=== PATIENT | female | born 1975 | race Caucasian/White ===

== ENCOUNTER → 2021-05-08 10:24 | Outpatient (CLI) | payer OTHER, MEDICARE, SELFPAY ==
--- NOTE | 2021-05-08 10:29 | XR_ITS ---
PROCEDURE: XR CHEST 2V CLINICAL HISTORY: R Post rib pain COMPARISON: No exams were available for comparison FINDINGS: The cardiomediastinal silhouette and pulmonary vascularity are within normal limits. There is a well-circumscribed round nodule in the left lung base measuring 14 mm consistent with a granuloma. The remaining lungs are clear. Minimal degenerative change in the upper thoracic spine with mild kyphosis. IMPRESSION: No acute findings. Dictated by: Madan Bhardwaj MD 05/08/2021 11:56 Madan Bhardwaj MD in [place] 05/08/2021 11:56
== END ==
PROVIDERS: PCP Family Medicine; Visit Provider Nurse Practitioner Family
DX: S22.41XD Multiple fractures of ribs, right side, subsequent encounter for fracture with routine healing (principal); R07.81 Pleurodynia
CPT/HCPCS: 71046

== ENCOUNTER → 2021-06-19 11:12 | Outpatient (CLI) | payer OTHER, MEDICARE, SELFPAY ==
--- NOTE | 2021-06-19 | CA_ITS ---
APPROVED REPORT Exam: Pharmacologic Technologist: lola mar, Ht: 5 ft 7 in Wt: 175 lbs BSA: 1.91 m2 HR: 69 bpm BP: 142/80 mmHg Indications: CP, A-FIB Medical History Medications: Asa,,,,, Diazepam,,,,, MeLOXICAM,,,,, Ventolin,,,,, PraZOSIN,,,,, Venlafaxine,,,,, Aripiprazole,,,,, Allergies: NKA Cardiac Risk Factors: Smoking Stress Test Details Test: LEXISCAN HR Resting HR: 67 bpm Max Heart Rate (APMHR): 172.465310 bpm Max HR Achieved: 114 bpm Target HR (85% APMHR): 146.306585 bpm % of APMHR: 66.28 Recovery HR: 11 bpm BP Resting BP: 142/80 mmHg Max BP: 186/95 mmHg Recovery BP: 186.0/95.0 mmHg ECG Resting ECG: NSR, normal Clinical Exercise duration: 04:04 min Highest Stage Achieved: Stress ECG Conclusion Symptoms: SOA, malaise, lightheaded, nausea, vomiting, and mild chest pressure. No arhhythmia or ectopy. No significant ST changes. Unremarkable Lexiscan stress. Images reported separately. Test Summary REST 02:58 . . 67 . 142/ 80 . . Stage 1 01:00 . . 92 . . . . Stage 2 01:00 . . 105 . . . . Stage 3 01:00 . . 96 . 174/ 93 . . Stage 4 01:00 . . 93 . 158/ 80 . . Stage 4 01:04 . . 94 . 158/ 80 . Stop exercise at 04:04 RECOVERY 01:00 . . 98 . . . . RECOVERY 02:00 . . 102 . . . . RECOVERY 03:00 . . 90 . 186/ 95 . . RECOVERY 04:00 . . 78 . 139/ 86 . . RECOVERY 05:00 . . 85 . 139/ 86 . . RECOVERY 06:00 . . 78 . 160/ 87 . . RECOVERY 07:00 . . 79 . 160/ 87 . . RECOVERY 07:18 . . 81 . 160/ 87 . . Electronically signed by : Ulices Ruiz MD 06/20/2021 17:12:38
--- NOTE | 2021-06-19 11:14 | US_ITS ---
APPROVED REPORT Exam Type: Lower Extremity Segmental Pressures Lurer: Dannielle Ricks RVT Indications Claudication: Bilaterally Rest Pain: Bilaterally Current Smoker CLAUDICATION Risk Factors Current Smoker Pressures/Indices Right Indices Left Indices Brachial 122.00 mmHg Brachial 124.00 mmHg Low Thigh 92.00 mmHg 0.74 Low Thigh 124.00 mmHg 1.00 Calf 95.00 mmHg 0.77 Calf 130.00 mmHg 1.05 Ankle(PT) 91.00 mmHg 0.73 Ankle(PT) 117.00 mmHg 0.94 Ankle(DP) 89.00 mmHg 0.72 Ankle(DP) 132.00 mmHg 1.06 Digit 61.00 mmHg 0.49 Digit 71.00 mmHg 0.57 Findings RT SAEED:0.73 LT SAEED:1.06 RT TBI:0.49 LT TBI:0.57 DAMPANED WAVEFORMS ON THE RIGHT NORMAL PULSES BILATERAL Conclusion RT SAEED:0.73 LT SAEED:1.06 RT TBI:0.49 LT TBI:0.57 DAMPANED WAVEFORMS ON THE RIGHT NORMAL PULSES BILATERAL Mild rt arterial disease Electronically signed by : Madan Bhardwaj MD 06/19/2021 16:31:22
--- NOTE | 2021-06-19 11:37 | NM_ITS ---
APPROVED REPORT Exam: Nuclear Stress Test Indication: TOB USE, FM HX, C.P., SOB, FATIGUE Patient Location: Outpatient Stress Tech: [place] Tech:Zoie Brewer JH RT (R)(N)(M) Ht: 5 ft 7 in Wt: 175 lbs Bra Size: B HR: 69 bpm BP: 142/80 mmHg BSA: 1.91 m2 BMI: 27.4 History: TOB USE, FM HX, C.P., SOB, FATIGUE Procedure: Patient received a 0.4 mg of intravenous Lexiscan, resting heart rate 69 bpm, resting blood pressure 142/80 mmHg, with Lexiscan maximum heart rate achived was 105 bpm which is Less than 85 % of the maximum predicted heart rate and blood pressure was 174/93 mmHg. With Lexiscan, patient denied any complaint of chest pain. C/P SOA, MALAISE Electrocardiogram Resting electrocardiogram shows sinus rhythm, with Lexiscan there is less than 1.[address] segment depression noted from the baseline EKG. The EKG portion of the Lexiscan is nondiagnostic. Cardiac Stress and Resting SPECT Images: Cardiac Stress and Resting SPECT images were obtained using technetium 99m Myoview 32.8 mCi stress and 10.54 mCi at rest. Gated SPECT for analysis of segmental wall motion and calculation of the ejection fraction also done, prone images were also obtained. Cardiac stress and resting SPECT images show uniform myocardial activity without segmental perfusion abnormality, computer derived ejection fraction is 44%, however visually estimated ejection fraction of 50% with no regional wall motion abnormality, right ventricle is normal size and contractility. Conclusion: 1. The EKG portion of the Lexiscan is nondiagnostic. 2. No scintigraphic evidence of reversible ischemia seen, computer derived ejection fraction is 44% however visually estimated ejection fraction 50% with no regional wall motion abnormality, right ventricle is normal size and contractility. 3. Likely normal Lexiscan Myoview study. Electronically signed by : Ulices Ruiz MD 06/20/2021 17:22:11
== END ==
PROVIDERS: PCP Family Medicine; Visit Provider Family Medicine
DX: R07.9 Chest pain, unspecified (principal); I73.9 Peripheral vascular disease, unspecified
CPT/HCPCS: 78452; 93017; 93923; A9502; J0280; J2785

== ENCOUNTER → 2021-06-29 11:12 | Outpatient (CLI) | payer OTHER, MEDICARE, SELFPAY ==
--- NOTE | 2021-06-29 11:32 | XR_ITS ---
PROCEDURE: XR HIP RT 2-3V W/PELVIS CLINICAL INDICATION: R Hip Pain COMPARISON: No exams were available for comparison FINDINGS: No fracture or dislocation. No lytic or blastic change. There are mild osteoarthritic changes of the hips with slight decrease in the joint space medially. Small osteophytes are present along the inferior portion of the acetabuli. There is mild hyperostosis along the greater trochanter on the right posteriorly. IMPRESSION: Mild osteoarthritic changes of the hips Dictated by: Madan Bhardwaj MD 06/29/2021 12:07 Madan Bhardwaj MD in [place] 06/29/2021 12:07
== END ==
PROVIDERS: PCP Family Medicine; Visit Provider Nurse Practitioner Family
DX: M25.551 Pain in right hip (principal)
CPT/HCPCS: 73502

== ENCOUNTER → 2021-09-18 14:26 | Outpatient (CLI) | payer OTHER, MEDICARE, SELFPAY ==
--- NOTE | 2021-09-18 14:31 | XR_ITS ---
PROCEDURE: XR KNEE LT 4V CLINICAL INDICATION: LT knee pain COMPARISON: No exams were available for comparison FINDINGS: No fracture or dislocation. No lytic or blastic change. There is normal mineralization. The joint spaces are well-preserved. No significant degenerative/arthritic changes. No erosive changes evident. There is a faint and questionable density seen just above the superior border of the patella which could be a small effusion within the suprapatellar bursa. Other findings:None. IMPRESSION: Grossly normal appearing left knee though I question the possibility of a small suprapatellar bursal effusion. Dictated by: Dr. Cesar Villafana MD 09/18/2021 14:51 Dr. Cesar Villafana MD in [place] 09/18/2021 14:51
== END ==
PROVIDERS: PCP Family Medicine; Visit Provider Orthopaedic Surgery
DX: M25.562 Pain in left knee (principal)
CPT/HCPCS: 73564

== ENCOUNTER → 2021-09-29 13:33 | Outpatient (CLI) | payer OTHER, MEDICARE, SELFPAY ==
--- NOTE | 2021-09-29 13:33 | MR_ITS ---
PROCEDURE: MR KNEE LT WO CON CLINICAL INDICATION: LT knee pain COMPARISON: CR XR KNEE LT 4V from 09/18/2021 TECHNIQUE: Routine multiplanar multi echo sequences are performed without gadolinium enhancement. FINDINGS: PCL appears intact. There is suspected tear of the mid aspect of the ACL. The inferior portion of the ACL fibers have a more horizontal course than expected. The lateral collateral ligaments have an unremarkable appearance. There is a complete tear of the MCL at the level of the knee joint with retracted distal fibers curling up deep to the MCL. No meniscal tear evident. There is a medium size knee joint effusion. Edema is present within the soft tissues around the knee. A bone bruise is present involving the proximal tibia laterally and posteriorly. The patellar tendon and quadriceps tendon appear intact IMPRESSION: 1. Tear of the anterior cruciate ligament and medial collateral ligament. 2. Bone bruise of the proximal tibia 3. Medium size knee joint effusion with edema within the soft tissues about the knee. Dictated by: Madan Bhardwaj MD 09/30/2021 16:01 Madan Bhardwaj MD in [place] 09/30/2021 16:01
== END ==
PROVIDERS: PCP Family Medicine; Visit Provider Orthopaedic Surgery
DX: M25.462 Effusion, left knee (principal)
CPT/HCPCS: 73721

== ENCOUNTER 2021-10-09 14:43 | Outpatient (RCR) | payer OTHER, MEDICARE, SELFPAY | END 2021-10-09 15:20 | disposition home or self-care (01) | LOC: PT 14:43 | PROVIDERS: Visit Provider Orthopaedic Surgery | DX: M25.462 Effusion, left knee (principal) | CPT/HCPCS: 97760 ==

== ENCOUNTER 2021-10-14 14:21 | Outpatient (RCR) | payer OTHER, MEDICARE, SELFPAY ==
--- NOTE | 2021-10-14 15:24 | HMH.OTOPEV ---
PHYSICIAN CERTIFICATION: I certify the specified therapy services for Romina Temple are required, authorized, and reviewed every 30 days.
== END 2021-10-14 14:25 | disposition home or self-care (01) ==
LOC: PT 14:21
PROVIDERS: PCP Family Medicine; Visit Provider Orthopaedic Surgery
DX: S83.512D Sprain of anterior cruciate ligament of left knee, subsequent encounter (principal)
CPT/HCPCS: 97163

== ENCOUNTER 2022-09-16 08:23 | Day surgery (SDC) | payer MEDICARE, SELFPAY ==
[2022-09-16] VITALS (11 sets, daily range): BP systolic 133–163; BP diastolic 73–99; PULSE 54–90; RESP 18–20; TEMP 36.6; O2SAT 95–99; BMI 27.1
--- NOTE | 2022-09-16 07:12 | IR_ITS ---
APPROVED REPORT Patient Location: Outpatient Registration Representative: JH Lopez RT (R) PROCEDURES Right retrograde femoral angiogram Catheter placement in the abdominal aorta Abdominal aortography Repositioning of the catheter in the abdominal aorta Bilateral iliofemoral runoff Angioplasty to the right common iliac artery INDICATION David claudication class V-, Occluded right common iliac artery, Abnormal SAEED 0.7 right leg Informed consent was obtained prior to the procedure. COMPLICATIONS None Estimated Blood Loss: Less than 10 mls TECHNIQUE 1% lidocaine used anesthetize the right groin the right femoral artery was accessed via the center technique and a 6 Swedish sheath was placed in the right femoral artery. Retrograde angiography demonstrated severe stenosis with near occlusion of the right common iliac artery. Therapeutic heparin was administered and an advantage wire was used to traverse the severe to critical stenosis. Following this a pigtail catheter was advanced and abdominal aortography was performed with repositioning followed by bilateral iliofemoral runoff. Following this a 5 Swedish sheath was exchanged for a 6 Swedish sheath and a 7 mm x 80 mm balloon was deployed in the distal abdominal aorta into the right common iliac artery at 15 nicole reducing the critical stenosis to less than 10%. A small dissection was identified which was nonflow limiting. Following this abdominal aortography with runoff was performed. After achieving excellent angiographic results the apparatus was removed the groin was reprepped gloves were changed sheath was removed and hemostasis was achieved using Perclose device patient was transferred to the postop putting in stable addition ANGIOGRAPHIC RESULTS Distal abdominal aorta has an infrarenal abdominal aneurysm Right common iliac artery was initially subtotally occluded following angioplasty there was a small nonflow limiting dissection with excellent inline flow into a much larger internal and external iliac artery Right external iliac artery was initially small which increased in size following revascularization Right common femoral artery has mild atheromatous plaque Right profunda femoris artery and right superficial femoral artery widely patent Right popliteal artery is widely patent There is three-vessel runoff below the knee on the right side Left common internal and external iliac arteries are widely patent as is the left common femoral artery Left superficial femoral artery and left profunda femoris artery are widely patent into a patent left popliteal artery There is three-vessel runoff below the knee on the left side IMPRESSION Infrarenal abdominal aortic aneurysm Subtotal occlusion of the right common iliac artery with successful angioplasty reducing lesion to 10% with a small nonflow limiting dissection Three-vessel runoff below the knee on the right side as described above PLAN 1. Aspirin and Plavix 2. LDL less than 55 to be achieved with high intensity statin 3. Avoidance of tobacco products 4. Risk factor modification 5. Evaluation of ischemic heart disease given patient's severe to critical peripheral artery disease Electronically signed by : Sebas Sandhu MD 09/16/2022 10:50:50
[2022-09-16 09:35] LABS: Basophils # 0.1 K/mm3 (0-0.2); Basophils % 0.8 % (0.1-2.0); Eosinophils # 0.2 K/mm3 (0.0-0.4); Eosinophils % 2.1 % (0.1-12.0); Hematocrit 47.5 % (37.0-47.0); Hemoglobin 14.8 g/dL (12.2-16.2); Lymphocytes # 3.1 K/mm3 (0.7-4.5); Lymphocytes % 38.4 % (10-50); Mean Corpuscular HGB Conc 31.3 g/dL (31.8-35.4); Mean Corpuscular Hemoglobin 33.3 pg (27.0-31.2); Mean Corpuscular Volume 106.6 fl (81-99); Mean Platelet Volume 8.5 fl (7.4-10.4); Monocytes # 0.3 K/mm3 (0.1-1.0); Monocytes % 3.7 % (1.7-9.3); Neutrophils # 4.4 K/mm3 (1.8-7.8); Neutrophils % 54.9 % (37.0-80.0); Platelet Count 249 K/mm3 (142-424); Red Blood Count 4.45 M/mm3 (4.20-5.40); Red Cell Distribution Width 12.8 % (11.5-17.5); White Blood Count 7.9 K/mm3 (4.8-10.8)
[2022-09-16 09:43] LABS: Chloride 106 mmol/L (98-107); Sodium 141 mmol/L (136-145)
[2022-09-16 09:46] LABS: Blood Urea Nitrogen 6 mg/dl (7-17); Calcium 9.8 mg/dl (8.4-10.2); Carbon Dioxide 27 mmol/L (22.0-30.0); Creatinine Clearance Estimated 141 mL/min (50-200); Estimated Glomerular Filt Rate 106 ml/min (>60); GFR (African American) 129 ML/MIN (>60); Glucose 98 mg/dl (74-100)
--- NOTE | 2022-09-16 12:14 | SUR.PHASEII ---
pt sitting up in bed eating lunch.
[2022-09-16 13:10] LABS: CATHL Activated Clotting Time 309 SEC (74-125)
== END 2022-09-16 13:34 | disposition home or self-care (01) ==
PROVIDERS: PCP Family Medicine; Visit Provider Internal Medicine
DX: I70.213 Atherosclerosis of native arteries of extremities with intermittent claudication, bilateral legs; F17.210 Nicotine dependence, cigarettes, uncomplicated; Z79.899 Other long term (current) drug therapy; I74.5 Embolism and thrombosis of iliac artery; I77.1 Stricture of artery
CPT/HCPCS: 36415; 37220; 75625; 80048; 85025; 85347; 99152; 99153; C1725; C1760; C1769; C1894; J1644; Q9966

== ENCOUNTER → 2022-09-24 12:54 | Outpatient (CLI) | payer MEDICARE, SELFPAY ==
--- NOTE | 2022-09-24 12:54 | CT_ITS ---
FINAL REPORT CLINICAL HISTORY: abdominal aneurysm FINDINGS: Post contrast axial imaging of the abdomen was obtained and reviewed. This study was performed with techniques to keep radiation doses as low as reasonably achievable (ALARA). Individualized dose reduction techniques using automated exposure control or adjustment of mA and/or kV according to the patient's size were employed. CTA: The abdominal aorta measures up to 2.1 cm. There is no evidence of aortic stenosis. The celiac axis, superior mesenteric artery and inferior mesenteric artery are patent without stenosis. There is no evidence of renal artery stenosis. The iliac arteries are unremarkable, without stenosis. Abdomen/pelvis: A large calcified granuloma is seen in the left lung base. The liver parenchyma is homogeneous. The gallbladder is present. The spleen, pancreas, adrenal glands and kidneys are unremarkable. There is no localized inflammatory change. IMPRESSION: No evidence of abdominal aortic aneurysm. Reviewed, Interpreted and Dictated by Efren Crain MD Transcribed by Alexandr Daniels Authenticated and [facility]
== END ==
LOC: RAD 12:54
PROVIDERS: PCP Family Medicine; Visit Provider Family Medicine
DX: I72.8 Aneurysm of other specified arteries (principal)
CPT/HCPCS: 74175; Q9967

== ENCOUNTER → 2023-02-24 23:13 | Outpatient (CLI) | payer MEDICARE, SELFPAY ==
[2023-02-24 17:50] LABS: Basophils # 0.1 K/mm3 (0-0.2); Basophils % 0.5 % (0.1-2.0); Eosinophils # 0.2 K/mm3 (0.0-0.4); Eosinophils % 1.9 % (0.1-12.0); Hematocrit 42.4 % (37.0-47.0); Hemoglobin 13.9 g/dL (12.2-16.2); Lymphocytes % 41.5 % (10-50); Mean Corpuscular HGB Conc 32.9 g/dL (31.8-35.4); Mean Corpuscular Hemoglobin 33.6 pg (27.0-31.2); Mean Corpuscular Volume 102.2 fl (81-99); Mean Platelet Volume 9.7 fl (7.4-10.4); Monocytes # 0.5 K/mm3 (0.1-1.0); Monocytes % 4.9 % (1.7-9.3); Neutrophils % 51.3 % (37.0-80.0); Platelet Count 286 K/mm3 (142-424); Red Blood Count 4.15 M/mm3 (4.20-5.40); Red Cell Distribution Width 12.4 % (11.5-17.5); White Blood Count 9.7 K/mm3 (4.8-10.8)
[2023-02-24 18:22] LABS: Alanine Aminotransferase 21 U/L (12-78); Albumin Level 4.2 g/dl (3.5-5.0); Albumin/Globulin Ratio 1.8 (1.1-1.8); Alkaline Phosphatase 86 U/L (38-126); Anion Gap 12.6 mEq/L (5-15); Aspartate Amino Transferase 23 U/L (14-36); Bilirubin,Total 0.2 mg/dl (0.2-1.3); Blood Urea Nitrogen 11 mg/dl (7-17); Calcium 9.4 mg/dl (8.4-10.2); Carbon Dioxide 24 mmol/L (22.0-30.0); Chloride 108 mmol/L (98-107); Chol/HDL Ratio 3.5 (1-3.5); Cholesterol 187 mg/dl (140-200); Estimated Glomerular Filt Rate 106 ml/min (>60); GFR (African American) 129 ML/MIN (>60); Globulin 2.4 g/dL (1.3-3.2); Glucose 92 mg/dl (74-100); HDL Cholesterol 54 mg/dl (40-60); Potassium 4.6 mmoL/L (3.5-5.1); Sodium 140 mmol/L (136-145); Total Protein,Serum 6.6 g/dl (6.3-8.2); Triglycerides 91 mg/dl (30-150); VLDL Cholesterol 18 mg/dL (0-40)
[2023-02-24 19:13] LABS: Vitamin B12 808 pg/mL (239-931)
== END ==
PROVIDERS: PCP Family Medicine; Visit Provider Family Medicine
DX: E78.5 Hyperlipidemia, unspecified (principal); I10 Essential (primary) hypertension; R00.0 Tachycardia, unspecified
CPT/HCPCS: 80053; 80061; 82607; 85025

== ENCOUNTER → 2023-06-16 18:48 | Outpatient (CLI) | payer MEDICARE, SELFPAY ==
[2023-06-16 18:58] LABS: MANUAL DIFFERENTIAL MANUAL DIFFERENTIAL (MANUAL DIFF)
[2023-06-16 19:05] LABS: Basophils # 0.1 K/mm3 (0-0.2); Basophils % 0.6 % (0.1-2.0); Eosinophils # 0.3 K/mm3 (0.0-0.4); Eosinophils % 2.7 % (0.1-12.0); Hematocrit 44.1 % (37.0-47.0); Hemoglobin 14.6 g/dL (12.2-16.2); Lymphocytes # 3.1 K/mm3 (0.7-4.5); Lymphocytes % 33.4 % (10-50); Mean Corpuscular Hemoglobin 33.7 pg (27.0-31.2); Mean Corpuscular Volume 102.1 fl (81-99); Mean Platelet Volume 9.8 fl (7.4-10.4); Monocytes # 0.3 K/mm3 (0.1-1.0); Neutrophils # 5.6 K/mm3 (1.8-7.8); Neutrophils % 60.4 % (37.0-80.0); Platelet Count 264 K/mm3 (142-424); Red Blood Count 4.32 M/mm3 (4.20-5.40); Red Cell Distribution Width 12.8 % (11.5-17.5); White Blood Count 9.3 K/mm3 (4.8-10.8)
[2023-06-16 19:33] LABS: Alanine Aminotransferase 32 U/L (12-78); Albumin Level 4.4 g/dl (3.5-5.0); Albumin/Globulin Ratio 1.6 (1.1-1.8); Alkaline Phosphatase 98 U/L (38-126); Anion Gap 13.2 mEq/L (5-15); Aspartate Amino Transferase 29 U/L (14-36); Bilirubin,Total 0.4 mg/dl (0.2-1.3); Blood Urea Nitrogen 9 mg/dl (7-17); Calcium 9.4 mg/dl (8.4-10.2); Carbon Dioxide 25 mmol/L (22.0-30.0); Chloride 100 mmol/L (98-107); Chol/HDL Ratio 3.8 (1-3.5); Cholesterol 196 mg/dl (140-200); Estimated Glomerular Filt Rate 106 ml/min (>60); GFR (African American) 128 ML/MIN (>60); Globulin 2.7 g/dL (1.3-3.2); Glucose 103 mg/dl (74-100); HDL Cholesterol 51 mg/dl (40-60); Potassium 4.2 mmoL/L (3.5-5.1); Sodium 134 mmol/L (136-145); Total Protein,Serum 7.1 g/dl (6.3-8.2); Triglycerides 137 mg/dl (30-150); VLDL Cholesterol 27 mg/dL (0-40)
[2023-06-16 19:43] LABS: Direct LDL Cholesterol 121.74 mg/dL (100-129)
[2023-06-16 19:52] LABS: Free T4 (Free Thyroxine) 0.91 ng/dl (0.78-2.19)
[2023-06-16 20:06] LABS: Thyroid Stimulating Hormone 0.42 uIU/mL (0.465-4.68)
[2023-06-16 20:16] LABS: Hemoglobin A1C 5.3 % (4.0-6.0)
[2023-06-16 20:44] LABS: Eosinophils % 4 % (0-3); Lymphocytes % 33 % (10-50); Macrocytosis 1+; Monocytes % 2 % (2-9); Neutrophils % 61 % (42-76); Platelet Estimate Normal; Total Cells Counted 100
== END ==
PROVIDERS: PCP Nurse Practitioner Acute Care; Visit Provider Nurse Practitioner Acute Care
DX: I10 Essential (primary) hypertension; F32.A Depression, unspecified; R53.83 Other fatigue; Z79.899 Other long term (current) drug therapy
CPT/HCPCS: 80053; 80061; 83036; 84439; 84443; 85007; 85014; 85018; 85048; 85049

== ENCOUNTER → 2023-06-30 08:42 | Outpatient (CLI) | payer MEDICARE, SELFPAY ==
--- NOTE | 2023-06-30 08:43 | US_ITS ---
FINAL REPORT CLINICAL HISTORY: pad/right leg claudication, HTN, HLD, PAD, COPD FINDINGS: COMPLETE ANKLE/BRACHIAL INDICES BILATERAL Ankle brachial indices were obtained. The right SAEED is 0.90. The left SEAED is 1.0. IMPRESSION: Findings consistent with mild arterial occlusive disease bilaterally. Reviewed, Interpreted and Dictated by Efren Crain MD Transcribed by Mary Melendrez Authenticated and [facility]
== END ==
PROVIDERS: PCP Family Medicine; Visit Provider Nurse Practitioner Family
DX: R06.00 Dyspnea, unspecified; R07.9 Chest pain, unspecified; E78.5 Hyperlipidemia, unspecified; I70.211 Atherosclerosis of native arteries of extremities with intermittent claudication, right leg; Z72.0 Tobacco use
CPT/HCPCS: 93923

== ENCOUNTER → 2023-07-12 07:50 | Outpatient (CLI) | payer MEDICARE, SELFPAY ==
[2023-07-12 08:29] VITALS: BMI 29.0
[2023-07-12 09:35] VITALS: BP 132/74; PULSE 63; RESP 18; O2SAT 97
[2023-07-12 09:50] VITALS: BP 136/72; PULSE 67; RESP 18; O2SAT 99
[2023-07-12 10:05] VITALS: PULSE 64; RESP 18; O2SAT 98
[2023-07-12 10:25] VITALS: PULSE 64; RESP 18; O2SAT 98
[2023-07-12 10:40] VITALS: PULSE 64; RESP 18; O2SAT 97
[2023-07-12 11:00] VITALS: BP 138/88; PULSE 66; RESP 18; O2SAT 99
--- NOTE | 2023-07-12 11:54 | PC.NURSE ---
Peripheral IV infiltrated prior to attempting CTA. Additional attempts at starting IV unsuccessful with IV infiltrating X2 upon injection of contrast. Spoke w/ Aurora Chakraborty in cardiology, determined procedure will be cancelled for today w/ cardiology to follow up to reschedule.
== END ==
PROVIDERS: PCP Family Medicine; Visit Provider Nurse Practitioner Family
DX: R07.9 Chest pain, unspecified (principal)

== ENCOUNTER 2023-07-21 11:26 | Outpatient (CLI) | payer MEDICARE, SELFPAY ==
[2023-07-21] VITALS (9 sets, daily range): BP systolic 111–143; BP diastolic 59–80; PULSE 59–70; RESP 16–17; TEMP 36.6; O2SAT 95–100; BMI 27.6
--- NOTE | 2023-07-21 12:12 | PC.NURSE ---
per Dr. Sandhu appropriate staff may attempt a midline, if unsuccessful he would like to continue with a central line placement.
--- NOTE | 2023-07-21 12:13 | PC.NURSE ---
pt reports she no longer has periods
[2023-07-21 13:16] LABS: Anion Gap 9.1 mEq/L (5-15); Blood Urea Nitrogen 6 mg/dl (7-17); Calcium 8.8 mg/dl (8.4-10.2); Carbon Dioxide 27 mmol/L (22.0-30.0); Chloride 100 mmol/L (98-107); Creatinine Clearance Estimated 141 mL/min (50-200); Estimated Glomerular Filt Rate 106 ml/min (>60); GFR (African American) 128 ML/MIN (>60); Glucose 94 mg/dl (74-100); Potassium 4.1 mmoL/L (3.5-5.1); Sodium 132 mmol/L (136-145)
== END 2023-07-21 14:45 | disposition home or self-care (01) ==
PROVIDERS: PCP Family Medicine; Visit Provider Nurse Practitioner Family
DX: R06.02 Shortness of breath (principal); R07.9 Chest pain, unspecified
CPT/HCPCS: 36410; 75574; 80048; Q9967

== ENCOUNTER 2024-03-05 15:20 | Outpatient (CLI) | payer MEDICARE, SELFPAY ==
--- NOTE | 2024-03-05 15:21 | CT_ITS ---
FINAL REPORT CLINICAL HISTORY: lung cancer screening CURRENT SMOKER 1.5ppd x 40 years FINDINGS: CTDI vol (mGy): 2.90 DLP: 110.[address] images of the chest were obtained using the low-dose protocol for screening. There is no evidence of mediastinal or hilar mass or adenopathy. No axillary mass or adenopathy is identified. On the lung window images, no pulmonary mass or suspicious nodule is identified. Emphysematous changes are noted. IMPRESSION: Lung RADS category 1 . Recommend 12 month followup low-dose CT for further evaluation. Reviewed, Interpreted and Dictated by Annemarie Martin MD Transcribed by Leora Don Authenticated and [facility]
== END 2024-03-05 23:59 | disposition home or self-care (01) ==
LOC: RAD 15:21
PROVIDERS: PCP Family Medicine; Visit Provider Family Medicine
DX: F17.210 Nicotine dependence, cigarettes, uncomplicated (principal); Z12.2 Encounter for screening for malignant neoplasm of respiratory organs
CPT/HCPCS: 71271

== ENCOUNTER 2024-09-19 13:02 | Outpatient (CLI) | payer MEDICARE, SELFPAY ==
[2024-09-19 13:32] LABS: Basophils # 0.1 K/mm3 (0-0.2); Basophils % 1.1 % (0.1-2.0); Eosinophils # 0.2 K/mm3 (0.0-0.4); Eosinophils % 2.7 % (0.1-12.0); Hemoglobin 14.9 g/dL (12.2-16.2); Lymphocytes % 36.8 % (10-50); Mean Corpuscular HGB Conc 34.6 g/dL (31.8-35.4); Mean Corpuscular Hemoglobin 34.6 pg (27.0-31.2); Mean Corpuscular Volume 99.9 fl (81-99); Mean Platelet Volume 8.7 fl (7.4-10.4); Monocytes # 0.3 K/mm3 (0.1-1.0); Monocytes % 4.3 % (1.7-9.3); Neutrophils # 4.4 K/mm3 (1.8-7.8); Neutrophils % 55.1 % (37.0-80.0); Platelet Count 231 K/mm3 (142-424); Red Blood Count 4.31 M/mm3 (4.20-5.40); Red Cell Distribution Width 12.9 % (11.5-17.5)
[2024-09-19 13:39] LABS: Alanine Aminotransferase 28 U/L (12-78); Albumin Level 4.5 g/dl (3.5-5.0); Alkaline Phosphatase 62 U/L (38-126); Anion Gap 11.9 mEq/L (5-15); Aspartate Amino Transferase 28 U/L (14-36); Bilirubin,Direct 0.4 mg/dl (0.0-0.4); Bilirubin,Total 0.4 mg/dl (0.2-1.3); Bilirubin,Unconjugated 0.1 mg/dL (0.0-1.1); Blood Urea Nitrogen 6 mg/dl (7-17); Calcium 9.6 mg/dl (8.4-10.2); Carbon Dioxide 25 mmol/L (22.0-30.0); Chloride 108 mmol/L (98-107); Chol/HDL Ratio 2.9 (1-3.5); Cholesterol 165 mg/dl (140-200); Estimated Glomerular Filt Rate 88 ml/min (>60); GFR (African American) 107 ML/MIN (>60); Glucose 78 mg/dl (74-100); HDL Cholesterol 56 mg/dl (40-60); Potassium 3.9 mmoL/L (3.5-5.1); Sodium 141 mmol/L (136-145); Total Protein,Serum 7.2 g/dl (6.3-8.2); Triglycerides 144 mg/dl (30-150); VLDL Cholesterol 29 mg/dL (0-40)
[2024-09-19 13:50] LABS: Direct LDL Cholesterol 95.76 mg/dL (100-129)
[2024-09-19 14:10] LABS: Thyroid Stimulating Hormone 1.03 uIU/mL (0.465-4.68)
[2024-09-19 14:16] LABS: Free T4 (Free Thyroxine) 0.99 ng/dl (0.78-2.19)
== END 2024-09-19 23:59 | disposition home or self-care (01) ==
LOC: LAB 13:04
PROVIDERS: PCP Family Medicine; Visit Provider Nurse Practitioner Family
DX: R06.02 Shortness of breath (principal); I25.10 Atherosclerotic heart disease of native coronary artery without angina pectoris; R07.9 Chest pain, unspecified; I73.9 Peripheral vascular disease, unspecified; I10 Essential (primary) hypertension; E78.2 Mixed hyperlipidemia; E78.5 Hyperlipidemia, unspecified
CPT/HCPCS: 36415; 80048; 80061; 80076; 84439; 84443; 85025

== ENCOUNTER 2025-06-11 08:50 | Outpatient (CLI) | payer MEDICARE, MEDICAID, SELFPAY ==
--- OUTSIDE RECORDS SUMMARY | 2025-06-11 08:53 | XMS_ITS | Clinical Summary ---
Author Organization [facility] Address [address] [place] [address] Care Team Providers Care Tinsmith Apprentice Name Role Phone Ge Cheng MD Primary Care Provider [phone] Social History Tobacco Use Types Packs/Day Years Used Date Smoking Tobacco: Never Assessed Comments Unknown Sex and Gender Information Value Date Recorded Sex Assigned at Not on file Legal Sex Female 3:08 PM EDT Gender Identity Not on file Sexual Orientation Not on file Plan of Treatment Health Maintenance Due Date Last Done Comments [facility]-Depression Screening 1973 [facility]-HIV Screening 1973 [facility]-Hepatitis C Screening 1973 [facility]-Medicare Annual Wellness (AWV) 1973 [facility]-/Child/Adol SDOH Screenings 1973 [facility]- SDOH Screenings 1991 [facility]-Adult SDOH Screenings 1991 [facility]-DTaP,Tdap,and Td Vaccine s (1 - Tdap) 02/28/1992 [facility]-Hepatitis B Vaccines (1 of 3 - 19+ 3-dose series) 02/28/1992 [facility]-Pap Smear 1994 [facility]-Cervical Cancer Screening 2003 [facility]-HPV/Cotest 2003 CT Colonography 2018 Colonoscopy 2018 FIT-DNA 2018 FIT 2018 FOBT 2018 Sigmoidoscopy 2018 [facility]-Colorectal Cancer Screening 2018 [facility]-Breast Cancer Screening 2023 [facility]-Pneumococcal Vaccine: 50 + Years (1 of 1 - PCV) 2023 [facility]-Zoster Vaccines (1 of 2) 2023 [id number] Vaccine (1 - 20 24-25 season) 2024 [facility]-Influenza Vaccine (#1) 2025 HPV Vaccines Aged Out No longer eligi ble based on patient's age to complete this topic [facility]-HIB Vaccines Aged Out No longer e ligible based on patient's age to complete this topic [facility]-Hepatitis A Vaccines Aged Out No longer eligible based on patient's age to complete this topic [facility]-IPV Vaccines Aged Out No longer e ligible based on patient's age to complete this topic [facility]-Rotavirus Vaccines Aged Out No lo nger eligible based on patient's age to complete this topic Insurance [employer] Care Teams Tinsmith Apprentice Relationship Specialty Start Date End Date Ge Cheng MD PCP - General 07/20/23
--- NOTE | 2025-06-11 09:00 | US_ITS ---
FINAL REPORT TECHNIQUE: Ultrasound images of the abdominal aorta were obtained. CLINICAL HISTORY: AAA FINDINGS: ULTRASOUND OF THE ABDOMINAL AORTA The aorta measures up to 2.3 cm. The bifurcation is normal. IMPRESSION: No evidence of abdominal aortic aneurysm. Reviewed, Interpreted and Dictated by Efren Crain MD Transcribed by Lucero Yu Authenticated and . [facility]
== END 2025-06-11 23:59 | disposition home or self-care (01) ==
LOC: RAD 08:51
PROVIDERS: PCP Family Medicine; Visit Provider Family Medicine
DX: I71.40 Abdominal aortic aneurysm, without rupture, unspecified (principal); F17.210 Nicotine dependence, cigarettes, uncomplicated
CPT/HCPCS: 76706